=== PATIENT | female | born 1990 | race Caucasian/White ===

== ENCOUNTER 2016-10-06 11:22 | Emergency (ER) | payer MEDICAID ==
[~2016-10-06] VITALS: Wt 59.0 kg
[~2016-10-06 11:22] MED LIST: NAPR-260 PO
[2016-10-06] MEDS ORDERED: IBUPROFEN 600 MG TAB PO ONE (12:30)
--- NOTE | 2016-10-06 13:04 | RADRPT ---
PROCEDURE: Left shoulder series CLINICAL INDICATION: Pain. TECHNIQUE: 3 views. COMPARISON: None FINDINGS: No fractures are noted. No dislocations are noted. No significant degenerative changes are noted. The glenohumeral joint space is well maintained. No erosions are noted. The soft tissues are unremarkable. IMPRESSION: 1. No bony abnormalities are identified. RPTAT: HH .Dontae Zavaleta MD, MD Date Time Electronically viewed and signed by .Dontae Zavaleta MD, MD on 10/06/2016 13:03 .G/
[2016-10-06] MEDS ORDERED: IBUP-1542 PO (13:16)
[2016-10-06 13:28] VITALS: BP 120/87; PULSE 87; RESP 18; TEMP 98.6
--- NOTE | 2016-10-06 17:29 | ERD ---
ER Documentation Chief Complaint Date/Time DATE: 10/06/16 TIME: 17:26 Chief Complaint left shoulder pain for few days no trauma. HPI This is a 26-year-old female that presents to the ER with some shoulder pain that started yesterday. Patient denies any fall or trauma to the area. Patient states that pain is sharp in quality it is nonradiating. It is worsened when she moves her shoulder. Patient normally works out approximately the shoulder and bicep exercises. ROS 12 point review of systems was done, all negative except per HPI. Medications Home Meds Active Scripts Ibuprofen* (Motrin*) 600 Mg Tab, 600 MG PO Q6, #30 TAB Prov:ÁNGELAJOHNATHAN Schwab 10/06/16 Naproxen* (Naprosyn*) 500 Mg Tablet, 500 MG PO BID Y for PAIN AND/OR INFLAMMATION, #30 TAB Prov:DONI ARMSTRONG MARKETING DEVELOPMENT REPRESENTATIVE 12/14/15 PMhx/Soc Medical and Surgical Hx: pt denies Medical Hx History of Surgery: Yes (l. knee) Hx Alcohol Use: No Hx Substance Use: No Hx Tobacco Use: No Physical Exam Vitals Vital Signs Date Time Temp Pulse Resp B/P Pulse Ox O2 Delivery O2 Flow Rate FiO2 10/06/16 13:28 98.6 87 18 120/87 100 Room Air 10/06/16 11:24 98.8 81 20 125/58 99 Physical Exam GENERAL: The patient is well developed and appropriate for usual state of health , in no apparent distress. HEENT: Atraumatic. Conjunctivae are pink. Pupils equal, round, and reactive to light. Extraocular muscles are grossly intact. Bilateral tympanic membranes are clear with no evidence of erythema, effusion or dulling of the light reflex. The oropharynx is clear with no erythema or exudates. NECK: C-spine is soft and supple. There is no cervical lymphadenopathy. CHEST: Clear to auscultation bilaterally. There are no rales, wheezes or rhonchi. HEART: Regular rate and rhythm. No murmurs, clicks, rubs or gallops. ABDOMEN: Soft, nontender and nondistended. Good bowel sounds. No rebound or guarding. No gross peritonitis. No gross organomegaly or masses. No Qiu sign or McBurney point tenderness. BACK: No midline or flank tenderness. EXTREMITIES: Left shoulder: Patient has full range of motion of the shoulder. Range of motion is not painful. Shoulder is nontender to palpation. Humerus is nontender to palpation. Patient has full range of motion of her elbow and it is not tender to palpation. NEURO: Alert and oriented. Cranial nerves II through XII are intact. Motor strength in all 4 extremities with 5/5 strength. Sensation grossly intact. Normal speech and gait. SKIN: There is no apparent rash or petechia. The skin is warm and dry. Results 24 hrs Current Medications Medications (Trade) Dose Ordered Sig/Jacinta Route PRN Reason Start Time Stop Time Status Last Admin Dose Admin Ibuprofen (Motrin) 600 mg ONCE ONCE PO 10/06/16 12:30 10/06/16 12:31 DC 10/06/16 12:23 Procedures/MDM This is a 26-year-old female presents to the ER with left shoulder pain for the last day. This is likely strain from working out. Suspicion for fracture or dislocation is low. Patient is neurovascularly intact is full range of motion of her shoulder. I cannot rule out rotator cuff tear at this time however this is unlikely low as patient does not have any abnormalities in her physical examination. Patient will be sent with ibuprofen. Needs to follow-up with her primary care doctor within 1-2 days or return to ER sooner if symptoms worsen. My medical decision making patient with she understands and agrees with plan. Departure Diagnosis: Primary Impression: Shoulder pain Condition: Stable Patient Instructions: Shoulder Pain (Uncertain Cause) Additional Instructions: Call your primary care doctor TOMORROW for an appointment during the next 1-2 days.See the doctor sooner or return here if your condition worsens before your appointment time. JOHNATHAN OMTTA Oct 06, 2016 17:29
== END 2016-10-06 13:29 | disposition home or self-care (01) ==
LOC: FTE 11:22
DX: M25.512 Pain in left shoulder (principal)
CPT/HCPCS: 73030; Z7502; Z7610

== ENCOUNTER 2016-12-07 19:31 | Emergency (ER) | payer SELFPAY ==
[~2016-12-07] VITALS: Ht 162.6 cm; Wt 59.0 kg
[~2016-12-07 19:31] MED LIST changes: +IBUP-1542 PO
[2016-12-07 19:40] VITALS: Ht 162.6 cm; Wt 59.0 kg
--- NOTE | 2016-12-07 22:45 | RADRPT ---
PROCEDURE: XR hand. CLINICAL INDICATION: Trauma TECHNIQUE: AP, lateral and oblique views of the right hand was obtained. COMPARISON: There are no similar studies submitted for comparison. FINDINGS: There is normal bone mineralization. There is no acute fracture or dislocation. No osseous erosions are identified. The joint spaces are within normal limits. There is no soft tissue swelling. IMPRESSION: No acute fracture or dislocation. RPTAT: HIKT .Marcellus Tijerina MD, MD Date Time Electronically viewed and signed by .Marcellus Tijerina MD, MD on 12/07/2016 22:45 .T/
[2016-12-07] MEDS ORDERED: IBUP400T22 PO (23:25)
[2016-12-07] MEDS ORDERED: HYDROCODONE/APAP (5/325) TAB PO ONE (23:30)
--- NOTE | 2016-12-08 00:04 | ERD ---
ER Documentation Chief Complaint Date/Time DATE: 12/08/16 TIME: 00:00 Chief Complaint right thumb injury "smashed at the door" HPI 26-year-old female with no significant past medical history presents the ED complaining of a crush injury to her right thumb that occurred 3 nights ago. Reports that she is right-handed. States that she actually crushed her right thumb with the car door. Denies any other injuries. Rates the pain a 3 out of 10. States that she has been taking Tylenol and ibuprofen. Denies any chest pain, shortness of breath, abdominal pain, nausea, vomiting, loss of sensation, loss of range of motion, numbness or tingling, fever, chills. ROS All systems reviewed and are negative except as per history of present illness. Medications Home Meds Active Scripts Ibuprofen* (Motrin*) 400 Mg Tab, 400 MG PO Q6, #30 TAB Prov:ARA PANDEY PA-C 12/07/16 Ibuprofen* (Motrin*) 600 Mg Tab, 600 MG PO Q6, #30 TAB Prov:JOHNATHAN MOTTA 10/06/16 Naproxen* (Naprosyn*) 500 Mg Tablet, 500 MG PO BID Y for PAIN AND/OR INFLAMMATION, #30 TAB Prov:DONI ARMSTRONG NP 12/14/15 Allergies Allergies: Coded Allergies: No Known Allergy (Unverified , 12/07/16) PMhx/Soc Medical and Surgical Hx: pt denies Medical Hx History of Surgery: Yes (l. knee) Anesthesia Reaction: No Hx Alcohol Use: No Hx Substance Use: No Hx Tobacco Use: No Smoking Status: Never smoker Physical Exam Vitals Vital Signs Date Time Temp Pulse Resp B/P Pulse Ox O2 Delivery O2 Flow Rate FiO2 12/07/16 19:40 98.3 63 20 120/78 100 Physical Exam Const: [id number], well-nourished. In no acute distress. Head: Atraumatic, normocephalic Eyes: Normal Conjunctiva without injection ENT: Normal external ear, nose and mouth. Neck: Full range of motion. No meningismus. Resp: Clear to auscultation bilaterally. No wheezing, rhonchi, rales, or crackles. No accessory muscle use. No retractions. Cardio: Regular rate and rhythm, no murmurs Skin: No petechiae or rashes Back: No midline tenderness. No CVA tenderness. Ext: No cyanosis, or edema. Cap refill less than 2 seconds. Distal pulses intact bilaterally. Subungual hematoma of the right thumb. No tenderness to palpation of the interphalangeal joint. Tenderness to palpation of the right thumb nail bed. No snuffbox tenderness. No deformities noted. Full range of motion with flexion, extension. Neur: Awake and alert. Normal gait and coordination. Muscle strength 5/5. Sensation intact bilaterally. Psych: Normal Mood and Affect Results 24 hrs Current Medications Medications (Trade) Dose Ordered Sig/Jacinta Route PRN Reason Start Time Stop Time Status Last Admin Dose Admin Acetaminophen/ Hydrocodone Bitart ([place] (5/325)) 1 tab ONCE ONCE PO 12/07/16 23:30 12/07/16 23:31 DC 12/07/16 23:37 Procedures/MDM This is a 26-year-old female with no significant past medical history presents to the ED complaining of a crush injury to her right thumb. Patient is afebrile and nontoxic-appearing. Patient has normal vital signs. A right hand x-ray was ordered to further evaluate patient. Patient was given [place] here in the ED with improvement of her pain. Patient gave consent to drain the subungual hematoma at this time with a electrocauterizer. It was done with no complications. Spontaneous blood was flowing and there was relief of pressure and pain from the injury site. PROCEDURE: XR hand. CLINICAL INDICATION: Trauma TECHNIQUE: AP, lateral and oblique views of the right hand was obtained. COMPARISON: There are no similar studies submitted for comparison. FINDINGS: There is normal bone mineralization. There is no acute fracture or dislocation. No osseous erosions are identified. The joint spaces are within normal limits. There is no soft tissue swelling. IMPRESSION: No acute fracture or dislocation. Patient is placed in a right thumb metal finger splint Splint Assessment: Neurovascularly intact pre and post splint placement with good fit. Patient's extremity symptoms have stabilized while they have been evaluated in the department and are appropriate for outpatient follow up. No evidence of fractures, dislocations, compartment syndrome, neurologic injury, vascular injury, open joint, open fracture, tendon laceration, septic arthritis, osteomyelitis, DVT, foreign body, or other emergent conditions. Discharge medications: Ibuprofen Follow up with primary care physician in 1-2 days for a wound check. Instructed patient to return to the ED sooner for any worsening symptoms. Patient's questions were answered. Patient understood and agreed with discharge plan. Patient discharged stable. Departure Diagnosis: Primary Impression: Crush injury to thumb Encounter type: initial encounter Laterality: right Qualified Code: S67.01XA - Crush injury to thumb, right, initial encounter Condition: Stable Patient Instructions: Subungual Hematoma, Crush Injury, Hand/Finger Referrals: [facility] YOU HAVE RECEIVED A MEDICAL SCREENING EXAM AND THE RESULTS INDICATE THAT YOU DO NOT HAVE A CONDITION THAT REQUIRES URGENT TREATMENT IN THE EMERGENCY DEPARTMENT. FURTHER EVALUATION AND TREATMENT OF YOUR CONDITION CAN WAIT UNTIL YOU ARE SEEN IN YOUR DOCTORS OFFICE WITHIN THE NEXT 1-2 DAYS. IT IS YOUR RESPONSIBILITY TO MAKE AN APPOINTMENT FOR FOLOW-UP CARE. IF YOU HAVE A PRIMARY DOCTOR --you should call your primary doctor and schedule an appointment IF YOU DO NOT HAVE A PRIMARY DOCTOR YOU CAN CALL OUR PHYSICIAN REFERRAL HOTLINE AT IF YOU CAN NOT AFFORD TO SEE A PHYSICIAN YOU CAN CHOSE FROM THE FOLLOWING [facility] [address] [facility]. [facility] [address] [facility] [address] [facility] [facility] [address] [facility] [address] [facility]. [facility]. [address] [facility]. [facility] YOU HAVE RECEIVED A MEDICAL SCREENING EXAM AND THE RESULTS INDICATE THAT YOU DO NOT HAVE A CONDITION THAT REQUIRES URGENT TREATMENT IN THE EMERGENCY DEPARTMENT. FURTHER EVALUATION AND TREATMENT OF YOUR CONDITION CAN WAIT UNTIL YOU ARE SEEN IN YOUR DOCTORS OFFICE WITHIN THE NEXT 1-2 DAYS. IT IS YOUR RESPONSIBILITY TO MAKE AN APPOINTMENT FOR FOLOW-UP CARE. IF YOU HAVE A PRIMARY DOCTOR --you should call your primary doctor and schedule and appointment IF YOU DO NOT HAVE A PRIMARY DOCTOR YOU CAN CALL OUR PHYSICIAN REFERRAL HOTLINE AT . IF YOU CAN NOT AFFORD TO SEE A PHYSICIAN YOU CAN CHOSE FROM THE FOLLOWING [facility]: [facility] [address] [place] [address] [facility] [address] [place] [address] [facility] + [facility] [address] [place] [address] [facility] URGENT CARE/SPECIALTIES Additional Instructions: FOLLOW UP WITH YOUR PRIMARY CARE PHYSICIAN TOMORROW. Return to this facility if you are not improving as expected. ARA PANDEY PA-C Dec 08, 2016 00:04
== END 2016-12-08 00:08 | disposition home or self-care (01) ==
LOC: FTE 19:31
DX: S67.01XA Crushing injury of right thumb, initial encounter (principal); W23.1XXA Caught, crushed, jammed, or pinched between stationary objects, initial encounter; Y92.9 Unspecified place or not applicable

== ENCOUNTER 2018-07-19 11:25 | Emergency (ER) | END 2018-07-19 15:14 | disposition home or self-care (01) ==